=== PATIENT | male | born 1995 | race Caucasian/White ===

== ENCOUNTER 2018-10-15 08:29 | Emergency (ER) | payer SELFPAY ==
[~2018-10-15] VITALS: Ht 177.8 cm; Wt 80.5 kg
--- NOTE | 2018-10-15 08:41 | NUR ---
ABD PRESSURE, DIARRHEA FOR 3 WEEKS. [facility] DX WITH "CONSTIPATION." DENIES FEVERS/VOMITING. +POLYURIA ABD SOFT/NORMAL BOWEL MOVEMENTS HX OF RACHIDY AT 15 YEARS OLD Addendum: 10/15/18 at 0850 by RFRUHLING NOT "NORMAL BOWEL MOVEMENTS" INSTEAD "NORMAL BOWEL SOUDS."
[2018-10-15 09:09] LABS: BASOPHILS # (AUTO) 0.02 x10^3/uL (0-0.1); BASOPHILS % (AUTO) 0 % (0-1); EOSINOPHILS # (AUTO) 0.19 x10^3/uL (0-0.4); EOSINOPHILS % (AUTO) 3 % (1-7); LYMPHOCYTES # (AUTO) 1.36 x10^3/uL (1-3.4); LYMPHOCYTES % (AUTO) 24 % (22-44); MD NO; MEAN CORPUSCULAR HEMOGLOBIN 29.4 pg (27.5-34.5); MEAN CORPUSCULAR HGB CONC 33.2 g/dL (33.2-36.2); MEAN CORPUSCULAR VOLUME 88.5 fL (81-97); MONOCYTES # (AUTO) 0.53 x10^3/uL (0.2-0.8); MONOCYTES % (AUTO) 9 % (2-9); NEUTROPHILS # (AUTO) 3.59 x10^3/uL (1.8-6.8); NEUTROPHILS % (AUTO) 63 % (42-75); PLATELET COUNT 170 x10^3/uL (130-400); RED BLOOD COUNT 4.78 x10^6/uL (4.38-5.82)
[2018-10-15 09:25] LABS: ALBUMIN 3.8 g/dL (3.4-5.0); CALCIUM 8.3 mg/dL (8.5-10.1); CREATININE 0.75 mg/dL (0.7-1.3)
[2018-10-15 09:57] LABS: ANION GAP 8 mmol/L (5-15); CHLORIDE 110 mmol/L (98-107)
--- NOTE | 2018-10-15 10:21 | NUR ---
RESTING COMFORTABLY (SLEEPING UNTIL WOKEN FOR RE-EVAL) ON [facility]. DENIES COMPLAINTS WHILE LYING (PAIN/NAUSEA) VSS ON NIBP/POX UPDATED ON POC (AWAITING [facility] RECORDS) CALL CASTREJON IN HAND/SIDE RAILS UP
[2018-10-15 10:31] VITALS: BP 119/68
== END 2018-10-15 11:09 | disposition home or self-care (01) ==
LOC: ED 09:17
DX: K52.9 Noninfective gastroenteritis and colitis, unspecified (principal)
CPT/HCPCS: 36415; 74021; 80048; 82040; 85025; 99284

== ENCOUNTER 2019-12-07 07:03 | Emergency (ER) | payer OTHER ==
--- NOTE | 2019-12-07 07:06 | NUR ---
NA X 1 PT IN BATHROOM
[2019-12-07 07:11] VITALS: BP 121/81
[2019-12-07] MEDS ORDERED: HYDROcodone/APAP 5/325 TABLET ONE (07:29)
[2019-12-07] MEDS ORDERED: PLEASE ENTER WEIGHT MC SCH (07:30)
[2019-12-07] MEDS ORDERED: HYDROcodone/APAP 5/325 TABLET PO ONE (07:30)
== END 2019-12-07 07:41 | disposition home or self-care (01) ==
LOC: ED 07:18
DX: G89.29 Other chronic pain (principal); M26.622 Arthralgia of left temporomandibular joint; K08.89 Other specified disorders of teeth and supporting structures
CPT/HCPCS: 99283

== ENCOUNTER 2020-06-28 13:48 | Emergency (ER) | payer OTHER ==
[2020-06-28 14:26] VITALS: BP 132/84
== END 2020-06-28 14:41 | disposition home or self-care (01) ==
LOC: ED 14:10
DX: B34.9 Viral infection, unspecified (principal); Z20.822 Contact with and (suspected) exposure to COVID-19; F17.200 Nicotine dependence, unspecified, uncomplicated; Z90.49 Acquired absence of other specified parts of digestive tract
CPT/HCPCS: 87635; 99283

== ENCOUNTER 2020-09-19 12:02 | Emergency (ER) | payer OTHER ==
[~2020-09-19] VITALS: Ht 177.8 cm; Wt 71.6 kg
[2020-09-19] MEDS ORDERED: HYDROmorphone 1 MG/ML, 1ML INJ IM PRN (12:30)
[2020-09-19] MEDS ORDERED: HYDROmorphone 1 MG/ML, 1ML INJ ONE (12:45)
--- NOTE | 2020-09-19 12:53 | NUR ---
PT AMBULATORY TO ROOM 19 W/ C/O PERIUMBILICAL PAIN STARTED TUESDAY AND PT STATES HE NOTICED THE BULDGE IN HIS UMBILICUS THIS MORNING. PT LIFTS HEAVY BOXES 60-70 LBS OCCASIONALLY. PT RESTING ON GURNEY. NADN. MONITORS APPLIED. VSS. MEDICATED PER AUG.
--- NOTE | 2020-09-19 13:27 | NUR ---
PT RESTING ON GURNEY. NADN. FLORES.
--- NOTE | 2020-09-19 13:55 | NUR ---
PT CHART REVIEWED AND PLACED FOR RECHECK.
--- NOTE | 2020-09-19 14:26 | NUR ---
BREAK RN: PT RESTING IN ROOM. NO ACUTE DISTRESS NOTED. CALL LIGHT IN PLACE. WILL CONTINUE TO MONITOR.
[2020-09-19 15:11] VITALS: BP 123/73
--- NOTE | 2020-09-19 15:11 | NUR ---
PT RESTING ON ALEX. JONATHAN. VSS. ERP DR. CABALLERO AT BEDSIDE FOR RE-EVAL.
--- NOTE | 2020-09-19 15:33 | NUR ---
BREAK RN: DISCHARGED FOR PRIMARY RN. VS STABLE. PT REPORTS HE HAS A RIDE HOME BY A FRIEND. PT DISCHARGED.
== END 2020-09-19 16:05 | disposition home or self-care (01) ==
LOC: ED 12:26
DX: K42.9 Umbilical hernia without obstruction or gangrene (principal); R10.33 Periumbilical pain
CPT/HCPCS: 76705; 96372; 99285; J1170

== ENCOUNTER 2020-12-10 12:41 | Day surgery (SDC) | payer OTHER ==
[~2020-12-10] VITALS: Ht 179.1 cm; Wt 70.2 kg
[~2020-12-10 12:41] MED LIST: BUPIVACAINE/PF 0.5% ONE; EPINEPHRINE 1 MG/ML, 1ML ONE
[2020-12-10] MEDS ORDERED: MAGNESIUM PO (13:20)
[2020-12-10 13:24] VITALS: BP 112/73
[2020-12-10] MEDS ORDERED: CHLORHEXIDINE 15 ML UDC PO ONE (13:30)
[2020-12-10] MEDS ORDERED: LACTATED RINGERS 1,000 ML IV SCH (13:30)
[2020-12-10] MEDS ORDERED: PROMETHAZINE 25 MG/ML, 1ML IVPush PRN (14:30)
[2020-12-10] MEDS ORDERED: ACETAMINOPHEN 325 MG TABLET PO PRN (14:30)
[2020-12-10] MEDS ORDERED: METHOCARBAMOL 1,000 MG in DEXTROSE 5% 100 ML IV PRN (14:30)
[2020-12-10] MEDS ORDERED: OXYcodone 5 MG/5 ML ORAL.SOL UDC PO PRN (14:30)
[2020-12-10] MEDS ORDERED: HYDROmorphone 1 MG/ML, 1ML INJ IVPush PRN (14:30)
[2020-12-10] MEDS ORDERED: LABETALOL 5MG/ML, 20ML IV PRN (14:30)
[2020-12-10] MEDS ORDERED: hydrALAzine 20 MG/ML, 1ML IV PRN (14:30)
[2020-12-10] MEDS ORDERED: MEPERIDINE/PF 25MG/0.5ML IVPush PRN (14:30)
[2020-12-10] MEDS ORDERED: LORazepam 2 MG/ML, 1ML IVPush PRN (14:30)
[2020-12-10] MEDS ORDERED: EPHEDRINE 50 MG/ML, 1ML IVPush PRN (14:30)
[2020-12-10] MEDS ORDERED: ONDANSETRON 2MG/ML, 2ML IVPush PRN (14:30)
[2020-12-10] MEDS ORDERED: MIDAZOLAM 1 MG/ML, 2ML ONE (14:45)
[2020-12-10] MEDS ORDERED: FENTANYL PF 250 MCG/5ML ONE (14:45)
[2020-12-10] MEDS ORDERED: MEPERIDINE/PF 50 MG/ML ONE (15:43)
[2020-12-10] MEDS ORDERED: FENTANYL PF 100 MCG/2ML ONE (15:59)
[2020-12-10] MEDS: FENTANYL PF 100 MCG/2ML IV PRN ×2 (16:00→16:05)
[2020-12-10] MEDS ORDERED: OXYcodone 5 MG/5 ML ORAL.SOL UDC ONE (16:02)
[2020-12-10] MEDS ORDERED: PROPOFOL 50 ML ONE (16:32)
[2020-12-10] MEDS ORDERED: SUCCINYLCHOLINE 20 MG/ML, 10ML ONE (16:37)
[2020-12-10] MEDS ORDERED: DEXAMETHASONE 4 MG/ML, 1ML ONE (16:37)
[2020-12-10] MEDS ORDERED: NEOSTIGMINE 1 MG/ML, 10ML ONE (16:37)
[2020-12-10] MEDS ORDERED: ROCURONIUM 10MG/ML,5ML ONE (16:37)
[2020-12-10] MEDS ORDERED: PROPOFOL 10 MG/ML, 20ML ONE (16:37)
[2020-12-10] MEDS ORDERED: GLYCOPYRROLATE 0.2MG/1ML, 5ML ONE (16:37)
[2020-12-10] MEDS ORDERED: ONDANSETRON 2MG/ML, 2ML ONE (16:37)
[2020-12-10] MEDS ORDERED: CEFAZOLIN 1,000 MG ONE (16:37)
== END 2020-12-10 18:00 | disposition home or self-care (01) ==
LOC: OR 12:41
PROVIDERS: ATTEND Surgery
DX: K43.0 Incisional hernia with obstruction, without gangrene (principal); Z20.822 Contact with and (suspected) exposure to COVID-19; Z90.49 Acquired absence of other specified parts of digestive tract
CPT/HCPCS: 49655; 87635; C1781; J0171; J0330; J0690; J1100; J2175; J2250; J2405; J2704; J2710; J3010; J7120; S2900